=== PATIENT | male | born 1995 | race Two or more races ===

== ENCOUNTER 2022-02-18 13:05 | Emergency (ER) | payer MEDICAID ==
[~2022-02-18] VITALS: Ht 160 cm; Wt 61.4 kg
[2022-02-18 13:21] VITALS: BP 125/79
== END 2022-02-18 14:54 | disposition home or self-care (01) ==
LOC: EMS 13:08
DX: S00.93XA Contusion of unspecified part of head, initial encounter (principal); F10.20 Alcohol dependence, uncomplicated; F12.90 Cannabis use, unspecified, uncomplicated; F15.10 Other stimulant abuse, uncomplicated; F17.210 Nicotine dependence, cigarettes, uncomplicated; X58.XXXA Exposure to other specified factors, initial encounter; Y93.89 Activity, other specified; Y92.89 Other specified places as the place of occurrence of the external cause; Y99.8 Other external cause status; Z02.89 Encounter for other administrative examinations
CPT/HCPCS: 99283; Z7502